=== PATIENT | female | born 1960 | race Caucasian/White ===

== ENCOUNTER → 2017-10-21 11:48 | Outpatient (CLI) | payer MEDICARE, MEDICAID, SELFPAY ==
--- NOTE | 2017-10-21 11:58 | XR_ITS ---
XR chest 2V HISTORY: ITS.REASON: DECREASE BREATH SOUNDS RT LUNG, COUGH, SOB ORDERING PHYSICIAN: Viri Gr PATIENT AGE: 57 years COMPARISON: 12/29/2015 FINDINGS: There has been prior CABG. There are low lung volumes. There is mild cardiomegaly with mild pulmonary venous congestion. The interstitium is also prominent some of which may be due to chronic changes but interstitial edema is also suspected. No effusions. No lobar consolidation or collapse. There is a vascular stent at the left carotid area. IMPRESSION: Right CABG with CHF and interstitial edema
== END ==
PROVIDERS: PCP Internal Medicine Adolescent Medicine; Visit Provider Nurse Practitioner Family
DX: R06.02 Shortness of breath (principal); R05 Cough; R09.89 Other specified symptoms and signs involving the circulatory and respiratory systems
CPT/HCPCS: 71046

== ENCOUNTER → 2017-11-12 10:01 | Outpatient (CLI) | payer MEDICARE, MEDICAID, SELFPAY ==
--- NOTE | 2017-11-12 10:06 | CA_ITS ---
PROCEDURE: 2-D M-mode and color Doppler study INDICATIONS FOR THE TEST: Chest pain COPDX Heart Murmur Tobacco SmokingX Palpitations Fatigue Syncope EdemaX HypertensionXDiabetes MellitusX Rheumatic Fever SOBXDOEXObesity HyperlipidemiaX Family History HD Additional History TDS/TLS SECONDARY TO COPD PATIENT INFORMATION HEIGHT: 64 WEIGHT:145 GENDER: Female B/P:120/80 2-D/M-MODE INTERPRETATION: 2-D MEASUREMENTS OBSERVED VALUES IN CMS Right Ventricular Dimension (RVDd) 2.4 Interventricular Septum (Thickness)(IVsd) .9 Left Ventricular Internal Dimensions(LVIDd) 4.4 Left Ventricular Posterior Wall (Thickness)(LVPWd) 1.0 Aortic Root 2.8 Aortic Cusp Separation 1.5 Left Atrial Dimensions (LAD) 2.8 2D 1. Technically difficult study because of the patient's factor and poor acoustic windows 2. The left atrium is mildly enlarged, left ventricle is normal size, visually estimated ejection fraction 55% with no obvious regional wall motion abnormality. 3. The right atrium and right ventricle are mildly enlarged with normal contractility. 4. The aortic valve is minimally thickened and calcified leaflet continue to display mobility. 5. The mitral and tricuspid valve leaflets are minimally thickened. 6. No significant pericardial effusion noted. 7. Pulmonic valve is poorly visualized. DOPPLER INTERROGATION: Doppler interrogation of the aortic, mitral and tricuspid valvular presence of mild mitral and tricuspid regurgitation, tricuspid and jet velocity insufficient for calculation of the right ventricular systolic pressure, diastolic parameters are inconclusive. CONCLUSION: 1. Technically difficult study because of the patient's factor and poor acoustic windows. 2. Mildly enlarged left atrium, normal left ventricular size, visually estimated ejection fraction 55% no signal wall motion abnormality. 3. Mildly enlarged right ventricle with normal contractility. 4. Thickened and calcified aortic valve without Doppler evidence of aortic stenosis aortic insufficiency 5. Mild mitral and tricuspid regurgitation. 6. No significant pericardial effusion noted.
--- NOTE | 2017-11-12 10:07 | US_ITS ---
US Arterial Ankle Brachial Ind INDICATION: Leg pain, claudication, diabetes, previous angioplasty, smoker ORDERING PHYSICIAN: Viri Gr PATIENT AGE: 57 years TECHNIQUE: Segmental pressures obtained of both right and left leg. These are compared to brachial blood pressure to yield index at each level sampled including summary COLE. The data sheets from the procedure are available in PACS FINDINGS Rest study only performed today No prior studies available for comparison. Blood pressures reported are in millimeters mercury. RIGHT LEG COLE = 1.1. Right TBI is 0.8 Brachial BP: 118 Thigh BP: 129 Calf BP: 105 Ankle PT: 126 Ankle DP : 109 Digit =92 LEFT LEG COLE = .7 Left TBI 0.4 Brachial BPD: 119 Thigh BP: 142 Calf BP: 85 Ankle PT:77 Ankle DP: 92 Digit = 51 Pulses and waveforms: Diminished pulses and waveforms on the left IMPRESSION: 1. The right COLE anterior be a is within normal limits. 2. Slightly low left COLE and low left TBI consistent with atherosclerotic vascular disease of the left lower extremity along with small vessel disease. There may be a stenosis in the left distal SFA or popliteal which could be confirmed with CTA if clinically warranted
--- NOTE | 2017-11-12 11:16 | XR_ITS ---
XR chest 2V HISTORY: ITS.REASON: CHRONIC CONGESTIVE HEART FAILURE,SHORTNESS OF BREATH ORDERING PHYSICIAN: Viri Gr PATIENT AGE: 57 years COMPARISON: 10/21/2017 FINDINGS: There are low lung volumes. There has been a prior median sternotomy with CABG. There is cardiomegaly without failure. Chronic interstitial changes are present with chronic changes in the lung bases. No acute bony anomalies. IMPRESSION: Cardiomegaly with chronic changes. No acute finding. CHF has shown improvement compared to the previous exam
[2017-11-12 13:24] LABS: Alanine Aminotransferase 29 U/L (12-78); Albumin Level 3.2 gm/dL (3.4-5.0); Albumin/Globulin Ratio 0.8 (1.1-1.8); Alkaline Phosphatase 137 U/L (46-116); Anion Gap 13.5 mEq/L (5-15); Aspartate Amino Transferase 24 U/L (15-37); Bilirubin,Total 0.4 mg/dL (0.2-1.0); Blood Urea Nitrogen 6 mg/dL (7-18); Calcium 8.9 mg/dL (8.5-10.1); Carbon Dioxide 27 mmol/L (21.0-32.0); Chloride 101 mmol/L (98-107); Chol/HDL Ratio 2.8 (1-3.5); Cholesterol 108 mg/dL (140-200); Creatinine,Serum 0.82 mg/dL (0.55-1.02); Estimated Glomerular Filt Rate 72 ml/min (>60); GFR (African American) 87 ML/MIN (>60); Globulin 4.1 gm/dl (1.3-3.2); Glucose 208 mg/dL (74-106); HDL Cholesterol 38 mg/dL (29-89); LDL Cholesterol 42 mg/dL (0-130); Potassium 4.5 mmoL/L (3.5-5.1); Sodium 137 mmol/L (136-145); Total Protein,Serum 7.3 gm/dL (6.4-8.2); Triglycerides 140 mg/dL (30-200); VLDL Cholesterol 28 mg/dL (0-40)
[2017-11-12 14:28] LABS: Hemoglobin A1C 9.9 % (0.0-7.0)
== END ==
PROVIDERS: Family Provider Internal Medicine Adolescent Medicine; PCP Internal Medicine Adolescent Medicine; Visit Provider Nurse Practitioner Family
DX: R06.02 Shortness of breath (principal); I70.213 Atherosclerosis of native arteries of extremities with intermittent claudication, bilateral legs; I50.9 Heart failure, unspecified; E78.5 Hyperlipidemia, unspecified; E11.21 Type 2 diabetes mellitus with diabetic nephropathy; E03.9 Hypothyroidism, unspecified; I10 Essential (primary) hypertension; Z00.00 Encounter for general adult medical examination without abnormal findings
CPT/HCPCS: 36415; 71046; 80053; 80061; 83036; 84443; 93306; 93922

== ENCOUNTER → 2017-12-26 10:59 | Outpatient (POV) | payer MEDICARE, MEDICAID, SELFPAY | PROVIDERS: Family Provider Internal Medicine Adolescent Medicine; PCP Internal Medicine Adolescent Medicine; Visit Provider Podiatrist | DX: Z00.00 Encounter for general adult medical examination without abnormal findings (principal) ==

== ENCOUNTER → 2018-02-10 13:28 | Outpatient (CLI) | payer MEDICARE, MEDICAID, SELFPAY ==
[2018-02-10 13:48] LABS: Basophils % 0.4 % (0.1-2.0); Eosinophils # 0.3 K/mm3 (0.0-0.4); Eosinophils % 4.9 % (0.1-12.0); Hematocrit 35.3 % (37.0-47.0); Hemoglobin 11.1 g/dL (12.2-16.2); Lymphocytes # 1.9 K/mm3 (0.7-4.5); Lymphocytes % 29.2 K/mm3 (10-50); Mean Corpuscular HGB Conc 31.4 g/dL (31.8-35.4); Mean Corpuscular Hemoglobin 28.3 pg (27.0-31.2); Mean Corpuscular Volume 90.1 fl (81-99); Mean Platelet Volume 8.4 fl (7.4-10.4); Monocytes # 0.4 K/mm3 (0.1-1.0); Monocytes % 5.5 % (1.7-9.3); Neutrophils # 3.8 K/mm3 (1.8-7.8); Neutrophils % 60.1 % (37.0-80.0); Platelet Count 252 K/mm3 (142-424); Red Blood Count 3.92 M/mm3 (4.20-5.40); Red Cell Distribution Width 14.5 % (11.5-17.5); White Blood Count 6.4 K/mm3 (4.8-10.8)
[2018-02-10 14:09] LABS: Alanine Aminotransferase 24 U/L (12-78); Albumin Level 2.9 gm/dL (3.4-5.0); Albumin/Globulin Ratio 0.6 (1.1-1.8); Alkaline Phosphatase 112 U/L (46-116); Aspartate Amino Transferase 24 U/L (15-37); Bilirubin,Total 0.5 mg/dL (0.2-1.0); Blood Urea Nitrogen 13 mg/dL (7-18); Calcium 8.9 mg/dL (8.5-10.1); Carbon Dioxide 26 mmol/L (21.0-32.0); Chloride 102 mmol/L (98-107); Creatinine,Serum 0.87 mg/dL (0.55-1.02); Estimated Glomerular Filt Rate 67 ml/min (>60); GFR (African American) 81 ML/MIN (>60); Globulin 4.7 gm/dl (1.3-3.2); Glucose 124 mg/dL (74-106); Sodium 138 mmol/L (136-145); Thyroid Stimulating Hormone 0.66 uIU/ml (0.358-3.740); Total Protein,Serum 7.6 gm/dL (6.4-8.2)
== END ==
PROVIDERS: Visit Provider Nurse Practitioner Family
DX: I95.1 Orthostatic hypotension (principal); R42 Dizziness and giddiness; R63.4 Abnormal weight loss; R63.0 Anorexia; E11.42 Type 2 diabetes mellitus with diabetic polyneuropathy
CPT/HCPCS: 36415; 80053; 83036; 84443; 85025; 93005

== ENCOUNTER → 2018-02-11 10:18 | Outpatient (CLI) | payer MEDICARE, MEDICAID, SELFPAY ==
--- NOTE | 2018-02-11 | CT_ITS ---
CT chest w con HISTORY: ITS.REASON: LOSS OF APPETITE, COUGH, WT LOSS ORDERING PHYSICIAN: Viri Gr PATIENT AGE: 57 years COMPARISON: 06/14/2015 TECHNIQUE: Axial images obtained following the administration of 75 mL of Isovue 370 . Sagittal, and coronal reformatted images are also generated and reviewed. All CT scans at the facility use one or more dose reduction, viz: automated exposure control; ma/kV adjustment per patient size (including targeted exams where dose is matched to indication; i.e. head); or iterative reconstruction technique. FINDINGS: There is been prior CABG. Normal heart size. No evidence of pericardial effusion. There are some small nodes in the subcarinal region toward the right measuring 19 x 9 mm not significantly changed. There is diffuse pulmonary fibrosis. This has progressed since the previous exam. No lobar consolidation or collapse. No effusions. The right fibrosis is worse in the peripheral lung guzman in both lung apices and the right lung base. Upper abdominal images show mild splenomegaly at 13 cm there is cortical scarring of the right kidney. IMPRESSION: 1. Progression of pulmonary fibrosis in both apices and right lung base 2. Prior CABG.
--- NOTE | 2018-02-11 10:57 | CT_ITS ---
CT abdomen pelvis w con CLINICAL INDICATION: ITS.REASON: LOSS OF APPETITE ORDERING PHYSICIAN: Viri Gr PATIENT AGE: 57 years COMPARISON: 09/10/2012 TECHNIQUE: Axial images obtained with sagittal and coronal reformats. All CT scans at the facility use one or more dose reduction, viz: automated exposure control; ma/kV adjustment per patient size (including targeted exams where dose is matched to indication; i.e. head); or iterative reconstruction technique. PROCEDURE: Oral Contrast: Redicat IV Contrast: 75 mL's of Isovue-370. FINDINGS: The liver, gallbladder, adrenal glands, and pancreas have an unremarkable appearance. There is mild splenomegaly at 13 cm atheromatous changes involve the aorta and ranches to the renal arteries are small and there may be stenosis at the ostium of both renal arteries. There is cortical scarring of the right kidney with nonobstructing stone in the mid polar region at 3 mm. A 4 mm stone is present in the lower pole on the right. The left kidney has an unremarkable appearance. Unremarkable appendix. There is mild amount retained colonic feces. No intestinal obstruction or free air is evident. There is some mild enhancement of the bladder wall with minimal thickening of the urinary bladder. This is of questionable clinical significance. No pelvic mass abnormal fluid collection or other significant anomalies evident. There are postsurgical changes of lumbar spine with prior fusion of L4-L5 and S1. IMPRESSION: 1. Mild splenomegaly. 2. Right renal cortical scarring with right nephrolithiasis. 3. Mild thickening and enhancement of the urinary bladder wall clinical significance. May be related to cystitis. Please correlate clinically
== END ==
PROVIDERS: Family Provider Internal Medicine Adolescent Medicine; PCP Internal Medicine Adolescent Medicine; Visit Provider Nurse Practitioner Family
DX: R63.0 Anorexia (principal); R05 Cough; R63.5 Abnormal weight gain
CPT/HCPCS: 71260; 74177; Q9967

== ENCOUNTER → 2018-04-23 08:41 | Outpatient (POV) | payer MEDICARE, MEDICAID, SELFPAY | PROVIDERS: Visit Provider Dermatology | DX: Z00.00 Encounter for general adult medical examination without abnormal findings (principal) ==

== ENCOUNTER → 2018-08-04 08:16 | Outpatient (POV) | payer MEDICARE, MEDICAID, SELFPAY | PROVIDERS: Visit Provider Dermatology | DX: Z00.00 Encounter for general adult medical examination without abnormal findings (principal) ==

== ENCOUNTER → 2018-08-19 10:29 | Outpatient (CLI) | payer MEDICARE, MEDICAID, SELFPAY ==
--- NOTE | 2018-08-19 | CI_ITS ---
Cerebrovascular Exam Indications: Follow-up carotid 433.10. 780.4 Dizziness and giddiness. 780.2 Syncope and collapse. IMPRESSIONS 1. The bilateral vertebral arteries are patent with normal antegrade flow. 2. 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 Disease progression from the study of 03-Jun-2017. 3. Study suggests 70-99% stenosis involving the left internal carotid artery. No change from the study of 03-Jun-2017. History: Coronary artery disease. Stroke. Risk factors: Current tobacco use. Diabetes mellitus. Hyperlipidemia. Labs, prior tests, procedures, and surgery: Right endarterectomy. Labs, prior tests, procedures, and surgery: Right endarterectomy. Carotid duplex study. Complete study and Doppler flow study including spectral analysis, color and shelton scale imaging. Height: Height: 162.6cm. Height: 64in. Weight: Weight: 60.8kg. Weight: 133.7lb. Body mass index: BMI: 23kg/m^2. Body surface area: BSA: 1.66m^2. Location: Vascular laboratory. Patient status: Outpatient. CRITICAL FINDINGS - Reported to: Viri Gr - Read back and verified. - 08/19/2018 - 11:25 am Tables: Arterial flow: + +--------+--------+ Location V sys V ed + +--------+--------+ Right CCA - proximal 16.8cm/s 0cm/s + +--------+--------+ Right CCA - mid 24.8cm/s 0cm/s + +--------+--------+ Right CCA - distal 15cm/s 0cm/s + +--------+--------+ Right ECA 21cm/s 1.4cm/s + +--------+--------+ Right vertebral 52.4cm/s 16.1cm/s + +--------+--------+ Left CCA - proximal 111cm/s 41.5cm/s + +--------+--------+ Left CCA - mid 86.7cm/s 27cm/s + +--------+--------+ Left CCA - distal 78.6cm/s 44.6cm/s + +--------+--------+ Left ECA 128cm/s 20.6cm/s + +--------+--------+ Left ICA - proximal 182cm/s 74.6cm/s + +--------+--------+ Left ICA - mid 203cm/s 88.4cm/s + +--------+--------+ Left ICA - distal 176cm/s 75.6cm/s + +--------+--------+ Left vertebral 71.7cm/s 19.6cm/s + +--------+--------+ Velocity ratios: + + + + Left, V sys Left, V ed + + + + Max ICA/mid CCA 2.34 3.27 + + + + Max ICA/dist CCA 2.58 1.98 + + + + Distal ICA/mid CCA 2.03 2.8 + + + + (Report amended ) Electronically signed by: Pedrito Currie [id number]
--- NOTE | 2018-08-19 10:36 | US_ITS ---
US Arterial Ankle Brachial Ind History: Peripheral vascular disease, weak pulses, rest pain and claudication on the left, prior surgery/femoropopliteal graft ORDERING PHYSICIAN: Viri Gr PATIENT AGE: 57 years COMPARISON made to 11/12/2017 TECHNIQUE: Segmental pressures obtained of both right and left leg. These are compared to brachial blood pressure to yield index at each level sampled including summary COLE. The data sheets from the procedure are available in PACS FINDINGS Rest study only performed today No prior studies available for comparison. Blood pressures reported are in millimeters mercury. RIGHT LEG COLE = 0.81. RIGHT LEG TBI=0.6 Brachial BP: 109 Thigh BP: 109 Calf BP: 117 Ankle PT: 117 Ankle DP : 120 Digit =87 LEFT LEG COLE = 0.35 LEFT LEG TBI= 0.24 Brachial BPD: 144 Thigh BP: 81 Calf BP: 77 Ankle PT:50 Ankle DP: 65 Digit = 35 Pulses and waveforms: Decreased waveforms and pulse on the left. IMPRESSION: 1. The right COLE slightly low at 0.8. This was previously 1.1. 2. The left COLE is depressed at 0.4 previously 0.7 indicating moderate to severe atherosclerotic vascular disease. The pressures are decreased in the thigh suggesting iliac or common femoral or proximal SFA stenosis. CT angiogram may confirm
[2018-08-19 13:11] LABS: Hemoglobin A1C 6.8 % (0.0-7.0)
[2018-08-19 13:18] LABS: Alanine Aminotransferase 32 U/L (12-78); Albumin Level 3.7 gm/dL (3.4-5.0); Albumin/Globulin Ratio 0.8 (1.1-1.8); Alkaline Phosphatase 136 U/L (46-116); Anion Gap 16.8 mEq/L (5-15); Aspartate Amino Transferase 17 U/L (15-37); Bilirubin,Total 0.4 mg/dL (0.2-1.0); Blood Urea Nitrogen 15 mg/dL (7-18); Calcium 9.3 mg/dL (8.5-10.1); Carbon Dioxide 25 mmol/L (21.0-32.0); Chloride 98 mmol/L (98-107); Chol/HDL Ratio 2.9 (1-3.5); Cholesterol 134 mg/dL (140-200); Creatinine,Serum 0.85 mg/dL (0.55-1.02); Estimated Glomerular Filt Rate 69 ml/min (>60); GFR (African American) 83 ML/MIN (>60); Globulin 4.9 gm/dl (1.3-3.2); Glucose 161 mg/dL (74-106); HDL Cholesterol 47 mg/dL (29-89); LDL Cholesterol 59 mg/dL (0-130); Potassium 4.8 mmoL/L (3.5-5.1); Sodium 135 mmol/L (136-145); Thyroid Stimulating Hormone 0.65 uIU/ml (0.358-3.740); Total Protein,Serum 8.6 gm/dL (6.4-8.2); Triglycerides 141 mg/dL (30-200); VLDL Cholesterol 28 mg/dL (0-40)
[2018-08-20 14:47] LABS: Vitamin B12 374 pg/mL (232-1245); Vitamin D 25 Hydroxy 27.9 ng/mL (30.0-100.0)
== END ==
PROVIDERS: PCP Internal Medicine Adolescent Medicine; Visit Provider Nurse Practitioner Family
DX: Z00.00 Encounter for general adult medical examination without abnormal findings (principal); I73.9 Peripheral vascular disease, unspecified; E11.21 Type 2 diabetes mellitus with diabetic nephropathy; E03.9 Hypothyroidism, unspecified; R42 Dizziness and giddiness; R09.89 Other specified symptoms and signs involving the circulatory and respiratory systems; R20.2 Paresthesia of skin; Z86.79 Personal history of other diseases of the circulatory system
CPT/HCPCS: 36415; 80053; 80061; 82607; 82652; 83036; 84443; 93880; 93922

== ENCOUNTER → 2018-09-25 13:23 | Outpatient (CLI) | payer MEDICARE, MEDICAID, SELFPAY ==
[2018-09-25 13:46] LABS: Blood Urea Nitrogen 11 mg/dL (7-18); Creatinine,Serum 0.79 mg/dL (0.55-1.02); Estimated Glomerular Filt Rate 75 ml/min (>60); GFR (African American) 91 ML/MIN (>60)
--- NOTE | 2018-09-25 13:55 | CT_ITS ---
CT angio neck INDICATION: : Right carotid artery, high-grade stenosis left carotid, dizziness, lightheaded ITS.REASON: DIZZINESS ORDERING PHYSICIAN: Marcus Nova PATIENT AGE: 57 years COMPARISON: None TECHNIQUE: Axial images are obtained following the intravenous administration 100 mL of Optiray 350 contrast. Sagittal and coronal reformatted images are reviewed as well. All CT scans at the facility use one or more dose reduction, viz: automated exposure control, ma/kV adjustment per patient size (including targeted exams where dose is matched to indication, i.e. head), or iterative reconstruction technique. FINDINGS: Angiographic findings: Prior CABG. The ostium of the right brachiocephalic artery is somewhat obscured by the contrast within the crossing left subclavian vein. There is suspected mild stenosis at the ostium of this dominant artery of 25-30% as well as an additional 40% stenosis at the ostium of the subclavian artery on the right.. There is occlusion of the proximal aspect of the right common carotid artery with occlusion of the right internal carotid both cervical and intracranial portion. The right middle cerebral, right anterior cerebral and posterior cerebral arteries fill via the collateral circulation from the [place]. There is some tortuosity of left carotid artery. There does appear to be an internal carotid artery stent present on the left. The stent begins at the level of the carotid bulb and extending superiorly for a length of 4 cm to the mid aspect of the cervical portion of the internal carotid artery on the left. The stent does appear to be patent but is narrowed in its mid aspect by approximately 50%. The internal carotids cephalad to the stent is patent. There are atheromatous changes of the cavernous portion with no significant stenosis. There is a stent in the proximal aspect of the left subclavian artery which appears patent. The vertebral arteries are patent. There is a small amount of calcific plaque at the ostium of both vertebral arteries. The recent ABIs demonstrated asymmetric blood pressures with the right brachial artery at 109 mmHg and the left brachial artery at 144 mmHg. There is a suspected mild stenosis at the ostium of the right and dominant artery. An additional 40-50% stenosis is suspected at the ostium of the subclavian artery on the right. Nonangiographic findings: Centrilobular and paraseptal emphysema with pulmonary fibrosis. IMPRESSION: 1. 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 Patent left subclavian and internal carotid artery stents with suspected 50% stenosis of the mid aspect of the left internal carotid artery stent 3. Mild stenosis at the ostium of the right brachiocephalic artery and moderate stenosis of the ostium of the right subclavian artery of 40-50%. 4. Pulmonary fibrosis with centrilobular and paraseptal emphysema
== END ==
PROVIDERS: Visit Provider Thoracic Surgery (Cardiothoracic Vascular Surgery)
DX: R42 Dizziness and giddiness (principal); I65.22 Occlusion and stenosis of left carotid artery
CPT/HCPCS: 36415; 70498; 82565; 84520